=== PATIENT | female | born 1985 | race Caucasian/White ===

== ENCOUNTER 2017-02-18 13:50 | Emergency (ER) | payer OTHER ==
[2017-02-18 13:59] VITALS: TEMP 97.9; BMI 32.3
--- NOTE | 2017-02-18 14:10 | PDOC ---
History of Present Illness - General History Source: Patient Exam Limitations: No Limitations - History of Present Illness Initial Comments: CHIEF COMPLAINT: 31 y/o afebrile female, (1 molar 2012), approximately 11 week gravid female c/o vaginal bleeding today. HISTORY OF PRESENT ILLNESS: The patient states that she thinks she's about 11 weeks with her LMP sometime in November. She states this morning she noticed light pink vaginal bleeding with some lower abdominal and back cramping. She denies f/c, n/v/d, CP, SOB, hematuria, dysuria, passage of clots. [employer]PER[employer] is Dr. Holloway. Vital signs on arrival are within normal limits. REVIEW OF SYSTEMS: GENERAL/CONSTITUTIONAL: No fever/chills. No weakness. No weight change. HEAD, EYES, EARS, NOSE AND THROAT: No change in vision. No ear pain or discharge. No sore throat. CARDIOVASCULAR: No chest pain or shortness of breath. RESPIRATORY: No cough, wheezing, or hemoptysis. GASTROINTESTINAL: +abd pain. No nausea, vomiting, diarrhea. +pink vaginal bleeding. GENITOURINARY: No dysuria, frequency, or change in urination. MUSCULOSKELETAL: No joint or muscle swelling or pain. No neck pain. +low back pain. NEUROLOGIC: No headache, vertigo, loss of consciousness, or loss of sensation. PHYSICAL EXAM: GENERAL: The patient is awake, alert, and fully oriented, in no acute distress. She is well appearing and ambulatory. HEAD: Normal with no signs of trauma. ENT: Pupils equal, round and reactive to light, extraocular movements intact, sclera anicteric, conjunctiva clear. Neck supple. LUNGS: Clear to auscultation bilaterally. Normal excursion. No respiratory distress or use of accessory muscles. CV: RRR, S1/S2, no MRG. Cap refill < 2 sec. ABDOMEN: Soft, non-distended, TTP of lower abdomen. No rebound, guarding, rigidity. BACK: No CVA TTP b/l. EXTREMITIES: Normal range of motion, no edema. NEUROLOGICAL: Normal speech, normal gait. CN II-XII grossly intact. PSYCH: Normal mood, normal affect. SKIN: Warm, dry, normal turgor, no rashes or lesions noted. <Chelsy Kaiser - Last Filed: 02/18/17 17:18> <Radha Montero - Last Filed: 02/21/17 13:01> - General Chief Complaint: Vaginal Bleeding Stated Complaint: VAGINAL BLEEDING, 12 WKS Time Seen by Provider: 02/18/17 14:07 Past History - Past Medical History Anemia: No Asthma: No Cancer: No Cardiac Disorders: No CVA: No COPD: No CHF: No Dementia: No Diabetes: No GI Disorders: Yes (gall Stones) Disorders: No HTN: No Hypercholesterolemia: No Seizures: No Thyroid Disease: No Other medical history: DENIES. - Surgical History Abdominal Surgery: Yes Appendectomy: No Cardiac Surgery: No Cholecystectomy: Yes Lung Surgery: No Neurologic Surgery: No Orthopedic Surgery: No - Psycho/Social/Smoking Cessation Hx Anxiety: No Suicidal Ideation: No Smoking Status: No Smoking History: Never smoked Have you smoked in the past 12 months: No Number of Cigarettes Smoked Daily: 0 Cigars Per Day: 0 Hx Alcohol Use: No Drug/Substance Use Hx: No Substance Use Type: None Hx Substance Use Treatment: No <Chelsy Kaiser - Last Filed: 02/18/17 17:18> <Radha Montero - Last Filed: 02/21/17 13:01> - Past Medical History Allergies/Adverse Reactions: Allergies Allergy/AdvReac Type Severity Reaction Status Date / Time No Known Allergies Allergy Verified 02/19/17 13:06 Home Medications: Ambulatory Orders Vit/Iron Fumarate/FA [ Plus Tablet] 1 each PO DAILY #0 tablet 07/13/13 Doxycycline Monohydrate [Mondoxyne Nl] 100 mg PO BID #10 capsule 02/19/17 Methylergonovine Maleate [Methergine -] 0.2 mg PO TID #6 tablet 02/19/17 *Physical Exam - Vital Signs Last Vital Signs Temp Pulse Resp BP Pulse Ox 97.9 F 68 18 124/69 99 02/18/17 13:56 02/18/17 13:56 02/18/17 13:56 02/18/17 13:56 02/18/17 13:56 <Chelsy Kaiser - Last Filed: 02/18/17 17:18> - Vital Signs Last Vital Signs Temp Pulse Resp BP Pulse Ox 97.9 F 70 18 118/69 99 02/18/17 13:56 02/18/17 17:49 02/18/17 17:49 02/18/17 17:49 02/18/17 17:49 <Radha Montero - Last Filed: 02/21/17 13:01> ED Treatment Course - LABORATORY CBC & Chemistry Diagram: 02/18/17 14:44 02/18/17 15:20 <Chelsy Kaiser - Last Filed: 02/18/17 17:18> - LABORATORY CBC & Chemistry Diagram: 02/18/17 14:44 02/18/17 15:20 - ADDITIONAL ORDERS Additional order review: 02/18/17 14:44 Urine Culture - Final Urine - Urine Clean Catch Contaminated: Please Repeat 02/18/17 14:44 RBC 4.79 MCV 84.8 MCHC 34.0 RDW 13.5 D MPV 9.2 Neutrophils % 56.6 Lymphocytes % 35.5 Monocytes % 6.8 Eosinophils % 0.8 Basophils % 0.3 <Radha Montero - Last Filed: 02/21/17 13:01> Medical Decision Making - Medical Decision Making A/P: 31 y/o female with pink vaginal bleeding today - approximately 11 weeks . Plan is as follows: 1. labs 2. UA/culture 3. Transvaginal ultrasound Transvaginal Ultrasound IMPRESSION: Single IUP with gestational age of 6 weeks, 1 day. No heart activity, consistent with demise. Blood type - O+ Beta HCG 19,831 UA negative for UTI. Labs unremarkable. Explained all of the results to the patient. Instructed her to call Dr. Holloway tomorrow to schedule a follow up appointment and return to the ER with any worsening or concerning symptoms. Suggested if she cannot get an appointment with Dr. Holloway within the next few days she should return here on for a repeat HCG. The patient verbalizes understanding of all instructions, has no further questions and is awaiting discharge. <Chelsy Kaiser - Last Filed: 02/18/17 17:18> *DC/Admit/Observation/Transfer <Chelsy Kaiser - Last Filed: 02/18/17 17:18> - Attestations Physician Attestion: I reviewed the case with the mid-level practitioner and agree with the mid- level practitioner's assessment, diagnosis and disposition. <Radha Montero - Last Filed: 02/21/17 13:01> Diagnosis at time of Disposition: Threatened Vaginal bleeding in Qualifiers: Trimester: first trimester Qualified Code(s): O46.91 - Antepartum hemorrhage, unspecified, first trimester - Discharge Dispostion Disposition: HOME Condition at time of disposition: Good - Referrals Referrals: Seema Holloway MD [Staff Physician] - - Patient Instructions Printed Discharge Instructions: DI for Vaginal Bleeding During , DI for Threatened Additional Instructions: Discharge Instructions: -Your ultrasound showed a fetus of 6 weeks, 1 day. There is no heart beat at this time -Your beta HCG is 19,831. -Please call Dr. Holloway tomorrow and schedule follow up appointment for repeat beta HCG level -Return to the ER with any worsening or concerning symptoms. Instrucciones de claribel: - Lee ultrasonido mostr un feto de 6 semanas, 1 da. No hay latido del corazn en elyse momento - Lee beta HCG es 19.831. -Por favor, llame al Dr. Holloway maana y programe la sayra de seguimiento para repetir el nivel de beta HCG -Vuelva a la karime de emergencias con cualquier empeoramiento o sntomas relacionados. Print Language: BULGARIAN
[2017-02-18 15:27] LABS: BASOPHIL 0.3 % (0-2.0); EOSINOPHIL 0.8 % (0-4.5); MCH 28.8 pg (25.7-33.7); MEAN CELL VOLUME 84.8 fl (80-96); MEAN PLT VOLUME 9.2 fl (7.5-11.1); NEUTROPHILS 56.6 % (42.8-82.8); PLATELET COUNT 165 K/MM3 (134-434); RDW 13.5 % (11.6-15.6); WHITE BLOOD COUNT 6.2 K/mm3 (4.0-10.0)
[2017-02-18 15:38] LABS: URINE APPEARANCE CLEAR; URINE BILIRUBIN NEGATIVE (NEGATIVE); URINE BLOOD 3+ (NEGATIVE); URINE COLOR COLORLESS; URINE GLUCOSE (UA) NEGATIVE (NEGATIVE); URINE KETONE NEGATIVE (NEGATIVE); URINE LEUK ESTERASE TRACE (NEGATIVE); URINE NITRITE NEGATIVE (NEGATIVE); URINE PROTEIN NEGATIVE (NEGATIVE); URINE UROBILINOGEN NEGATIVE mg/dL (0.2-1.0)
[2017-02-18 15:55] LABS: ALBUMIN 3.7 g/dl (3.4-5.0); ANION GAP 8 (8-16); CALCIUM 8.8 mg/dL (8.5-10.1); CO2 24 mmol/L (21-32); CREATININE 0.4 mg/dL (0.55-1.02); GLUCOSE,RANDOM 94 mg/dL (74-106); SGOT/AST 24 U/L (15-37); SGPT/ALT 47 U/L (12-78); TOT PROT 7.5 g/dl (6.4-8.2)
[2017-02-18 15:56] LABS: ALK PHOS 87 U/L (45-117); BILIRUBIN,TOTAL 0.5 mg/dL (0.2-1.0)
[2017-02-18 16:56] LABS: URINE BACTERIA FEW /hpf (NONE SEEN); URINE RBC 3 /hpf (0-3); URINE WBC <1 /hpf (3-5)
[2017-02-18 17:50] VITALS: BP 118/69; PULSE 70
== END 2017-02-18 17:49 | disposition home or self-care (01) ==
LOC: JER 13:50
DX: O26.891 Other specified pregnancy related conditions, first trimester (principal); O02.1 Missed abortion; O08.9 Unspecified complication following an ectopic and molar pregnancy; Z3A.01 Less than 8 weeks gestation of pregnancy
CPT/HCPCS: 36415; 76817-TC; 80053; 81003; 81015; 84702; 85025; 86850; 86900; 86901; 87086; 99283-25

== ENCOUNTER 2017-02-19 12:58 | Emergency (ER) | payer OTHER ==
[2017-02-19 13:06] VITALS: BMI 32.3
--- NOTE | 2017-02-19 13:42 | PDOC ---
History of Present Illness - General Chief Complaint: Vaginal Bleeding Stated Complaint: BLEEDING (9 WKS ) Time Seen by Provider: 02/19/17 13:41 History Source: Patient - History of Present Illness Initial Comments: CHIEF COMPLAINT: 31 y/o afebrile female, (1 molar 2012), who was seen here yesterday for vaginal bleeding while here because the bleeding has continued. HISTORY OF PRESENT ILLNESS: The patient states that today her vaginal bleeding became heavier with passage of clots. She has lower abdominal and back cramping and feels slightly nauseous. She denies f/c, v/d, CP, SOB, hematuria, dysuria. It was explained to her yesterday upon discharge by me that the bleeding may continue or worsen. [employer] is Dr. Holloway. Vital signs on arrival are within normal limits. REVIEW OF SYSTEMS: GENERAL/CONSTITUTIONAL: No fever/chills. No weakness. No weight change. HEAD, EYES, EARS, NOSE AND THROAT: No change in vision. No ear pain or discharge. No sore throat. CARDIOVASCULAR: No chest pain or shortness of breath. RESPIRATORY: No cough, wheezing, or hemoptysis. GASTROINTESTINAL: +abd pain. No nausea, vomiting, diarrhea. +red vaginal bleeding with passage of clots. GENITOURINARY: No dysuria, frequency, or change in urination. MUSCULOSKELETAL: No joint or muscle swelling or pain. No neck pain. +low back pain. NEUROLOGIC: No headache, vertigo, loss of consciousness, or loss of sensation. PHYSICAL EXAM: GENERAL: The patient is awake, alert, and fully oriented, in no acute distress. She is well appearing and ambulatory. HEAD: Normal with no signs of trauma. ENT: Pupils equal, round and reactive to light, extraocular movements intact, sclera anicteric, conjunctiva clear. Neck supple. LUNGS: Clear to auscultation bilaterally. Normal excursion. No respiratory distress or use of accessory muscles. CV: RRR, S1/S2, no MRG. Cap refill < 2 sec. ABDOMEN: Soft, non-distended, TTP of lower abdomen. No rebound, guarding, rigidity. BACK: No CVA TTP b/l. VAGINAL: Speculum exam reveals moderate red blood in the vault without visualization of any clots. The os is open to finger tip. Digital exam reveals CMT without adnexal tenderness b/l. EXTREMITIES: Normal range of motion, no edema. NEUROLOGICAL: Normal speech, normal gait. CN II-XII grossly intact. PSYCH: Normal mood, normal affect. SKIN: Warm, dry, normal turgor, no rashes or lesions noted. Past History - Past Medical History Allergies/Adverse Reactions: Allergies Allergy/AdvReac Type Severity Reaction Status Date / Time No Known Allergies Allergy Verified 02/19/17 13:06 Home Medications: Ambulatory Orders Vit/Iron Fumarate/FA [ Plus Tablet] 1 each PO DAILY #0 tablet 07/13/13 Anemia: No Asthma: No Cancer: No Cardiac Disorders: No CVA: No COPD: No CHF: No Dementia: No Diabetes: No GI Disorders: Yes (gall Stones) Disorders: No HTN: No Hypercholesterolemia: No Seizures: No Thyroid Disease: No - Surgical History Abdominal Surgery: Yes Appendectomy: No Cardiac Surgery: No Cholecystectomy: Yes Lung Surgery: No Neurologic Surgery: No Orthopedic Surgery: No - Reproductive History (#): 4 Para: 2 - Psycho/Social/Smoking Cessation Hx Anxiety: No Suicidal Ideation: No Smoking Status: No Smoking History: Never smoked Have you smoked in the past 12 months: No Number of Cigarettes Smoked Daily: 0 Cigars Per Day: 0 Hx Alcohol Use: No Drug/Substance Use Hx: No Substance Use Type: None Hx Substance Use Treatment: No *Physical Exam - Vital Signs Last Vital Signs Temp Pulse Resp BP Pulse Ox 97.8 F 73 20 128/70 100 02/19/17 13:03 02/19/17 13:03 02/19/17 13:03 02/19/17 13:03 02/19/17 13:03 ED Treatment Course - LABORATORY CBC & Chemistry Diagram: 02/19/17 14:06 02/19/17 15:30 Medical Decision Making - Medical Decision Making A/P: 31 y/o afebrile female seen here yesterday for vaginal bleeding in has returned for continued and heavier bleeding with passage of clots. The patient had an ultrasound yesterday that suggested demise. Will repeat CBC and beta. WBC count has doubled since yesterday and she now has a left shift. She is afebrile with normal vital signs. Will do further lab work up and send for repeat Ultrasound Transvaginal Ultrasound IMPRESSION: No gestational sac seen. There is a trace of fluid within the cervical canal and the endometrial cavity in the lower uterine segment. No gross retained products of conception are identified. Correlation with serial quantitative serum beta HCG and follow up ultrasound is needed. Spoke with the patient and gave her all of the results. Question as to whether we keep her for a D&C given her os is slightly open or d/c to home with abx. Informed the patient we are trying to get in touch with her [employer] to discuss the matter and asked her to be patient. [facility] has been attempting to reach Dr. Luna since 6:20pm without call back yet. Dr. Sarah is aware of the patient and will discuss the matter with Dr. Luna when she calls. *DC/Admit/Observation/Transfer Diagnosis at time of Disposition: Miscarriage Vaginal bleeding in Qualifiers: Trimester: first trimester Qualified Code(s): O46.91 - Antepartum hemorrhage, unspecified, first trimester - Discharge Dispostion Condition at time of disposition: Stable - Referrals Referrals: Seema Holloway MD [Staff Physician] -
[2017-02-19 15:12] LABS: BASOPHIL 0.2 % (0-2.0); EOSINOPHIL 0.1 % (0-4.5); MCH 28.5 pg (25.7-33.7); MCHC 34.1 g/dl (32.0-36.0); MEAN CELL VOLUME 83.6 fl (80-96); MEAN PLT VOLUME 8.8 fl (7.5-11.1); NEUTROPHILS 87.2 % (42.8-82.8); PLATELET COUNT 164 K/MM3 (134-434); RDW 13.8 % (11.6-15.6); WHITE BLOOD COUNT 12.6 K/mm3 (4.0-10.0)
[2017-02-19] MEDS ORDERED: SODIUM CHLORIDE 1,000 ML IV STA (15:24)
[2017-02-19 15:53] LABS: URINE APPEARANCE CLEAR; URINE BILIRUBIN NEGATIVE (NEGATIVE); URINE BLOOD 3+ (NEGATIVE); URINE COLOR STRAW; URINE GLUCOSE (UA) NEGATIVE (NEGATIVE); URINE KETONE NEGATIVE (NEGATIVE); URINE LEUK ESTERASE TRACE (NEGATIVE); URINE NITRITE NEGATIVE (NEGATIVE); URINE PROTEIN NEGATIVE (NEGATIVE); URINE UROBILINOGEN NEGATIVE mg/dL (0.2-1.0)
[2017-02-19 16:12] LABS: ALBUMIN 3.9 g/dl (3.4-5.0); ALK PHOS 83 U/L (45-117); ANION GAP 11 (8-16); BILIRUBIN,TOTAL 0.7 mg/dL (0.2-1.0); CO2 22 mmol/L (21-32); CREATININE 0.4 mg/dL (0.55-1.02); GLUCOSE,RANDOM 95 mg/dL (74-106); SGOT/AST 30 U/L (15-37); SGPT/ALT 50 U/L (12-78)
--- NOTE | 2017-02-19 16:58 | PDOC ---
*Physical Exam - Vital Signs Last Vital Signs Temp Pulse Resp BP Pulse Ox 97.8 F 73 20 128/70 100 02/19/17 13:03 02/19/17 13:03 02/19/17 13:03 02/19/17 13:03 02/19/17 13:03 ED Treatment Course - LABORATORY CBC & Chemistry Diagram: 02/19/17 14:06 02/19/17 15:30 - ADDITIONAL ORDERS Additional order review: Laboratory Results 02/19/17 02/19/17 02/19/17 15:30 15:30 14:06 Sodium 137 Potassium 3.8 Chloride 104 Carbon Dioxide 22 Anion Gap 11 BUN 8 Creatinine 0.4 L Creat Clearance w eGFR > 60 Random Glucose 95 Lactic Acid 0.9 Calcium 9.0 Total Bilirubin 0.7 D AST 30 D ALT 50 Alkaline Phosphatase 83 Total Protein 8.0 Albumin 3.9 Beta HCG, Quant 39638.7 02/19/17 14:06 RBC 4.95 MCV 83.6 MCHC 34.1 RDW 13.8 MPV 8.8 Neutrophils % 87.2 H D Lymphocytes % 9.4 D Monocytes % 3.1 L Eosinophils % 0.1 D Basophils % 0.2 - Medications Given in the ED: ED Medications Discontinued Medications Generic Name Dose Route Start Last Admin Trade Name Freq PRN Reason Stop Dose Admin Sodium Chloride 1,000 mls @ 1,000 mls/hr 02/19/17 15:24 02/19/17 15:31 Normal Saline - IV 02/19/17 16:23 1,000 mls/hr ASDIR STA Administration Medical Decision Making - Medical Decision Making 02/19/17 16:57 Seen with PA, agree with her assessment and plan A/P:31yo F presents with likely incomplete . Labs thus far with leukocytosis, however pt denies cough, SOB, CP, abd pain, dysuria, suprapubic pain, rashes. Unlikely leukocytosis due to infection, more likely due to stress response from incomplete . Will check UA and treat if positive in case viable. Type and Screen Rh+ from yesterday -cbc, bmp, lfts -UA -TVUS -likely DC to f/u with her OB within 2 days and the following bleeding precautions: Bleeding may be spotty, dark brown, and include clots. Often there is no bleeding for the first few days immediately following the , then hormonal changes may cause bleeding as heavy as a period around the third or fifth day and increased cramping. If heavy bleeding (soaking a full-sized maxi- pad in one hour) and continues for more than three hours, call your OB doctor. If you do not hear back within a few hours, come to the emergency department 02/19/17 17:01 *DC/Admit/Observation/Transfer Diagnosis at time of Disposition: Vaginal bleeding in Qualifiers: Trimester: first trimester Qualified Code(s): O46.91 - Antepartum hemorrhage, unspecified, first trimester
[2017-02-19 17:44] LABS: URINE BACTERIA RARE /hpf (NONE SEEN); URINE RBC <1 /hpf (0-3); URINE WBC 1 /hpf (3-5)
[2017-02-19 20:06] VITALS: BP 111/67; PULSE 59; TEMP 98.5
--- NOTE | 2017-02-19 20:19 | PDOC ---
*Physical Exam - Vital Signs Last Vital Signs Temp Pulse Resp BP Pulse Ox 98.5 F 59 L 20 111/67 99 02/19/17 20:05 02/19/17 20:05 02/19/17 13:03 02/19/17 20:05 02/19/17 20:05 - Physical Exam Comments: 02/19/17 20:14 Patient was endorsed to me by Dr. Barragan. Patient is a 31-year-old female, 4 para 2, who presented for reevaluation of abdominal pain and vaginal bleeding. Patient been seen one day prior and diagnosed with missed AB. In the ER, patient is awake and alert, afebrile and hemodynamically stable. On pelvic exam, patient was noted to have CMP and mild uterine tenderness. Os was noted to be fingertip. CBC was noted for increased WBCs of 12.6 which appears to be increased from 6.2 with predominance of neutrophils. Urinalysis is within normal limit. Patient is Rh+. Beta hCG was also noted to have decreased from 19, 000-to 12,000. Transvaginal ultrasound shows a fluid collection in the distal uterine segment with no evidence of retained products of conception, endometrial stripe is noted to be 11 mm. Case discussed with Dr. jefferson of OB/ [employer]. Will discharge patient with doxycycline, Methergine and [employer] follow-up. ED Treatment Course - LABORATORY CBC & Chemistry Diagram: 02/19/17 14:06 02/19/17 15:30 - ADDITIONAL ORDERS Additional order review: Laboratory Results 02/19/17 02/19/17 02/19/17 15:30 15:30 15:30 Sodium 137 Potassium 3.8 Chloride 104 Carbon Dioxide 22 Anion Gap 11 BUN 8 Creatinine 0.4 L Creat Clearance w eGFR > 60 Random Glucose 95 Lactic Acid 0.9 Calcium 9.0 Total Bilirubin 0.7 D AST 30 D ALT 50 Alkaline Phosphatase 83 Total Protein 8.0 Albumin 3.9 Beta HCG, Quant Urine Color Straw Urine Appearance Clear Urine pH 7.0 Urine Protein Negative Urine Glucose (UA) Negative Urine Ketones Negative Urine Blood 3+ H Urine Nitrite Negative Urine Bilirubin Negative Urine Urobilinogen Negative Ur Leukocyte Esterase Trace Urine RBC <1 Urine WBC 1 Ur Epithelial Cells Rare Urine Bacteria Rare 02/19/17 14:06 Sodium Potassium Chloride Carbon Dioxide Anion Gap BUN Creatinine Creat Clearance w eGFR Random Glucose Lactic Acid Calcium Total Bilirubin AST ALT Alkaline Phosphatase Total Protein Albumin Beta HCG, Quant 24485.7 Urine Color Urine Appearance Urine pH Urine Protein Urine Glucose (UA) Urine Ketones Urine Blood Urine Nitrite Urine Bilirubin Urine Urobilinogen Ur Leukocyte Esterase Urine RBC Urine WBC Ur Epithelial Cells Urine Bacteria 02/19/17 14:06 RBC 4.95 MCV 83.6 MCHC 34.1 RDW 13.8 MPV 8.8 Neutrophils % 87.2 H D Lymphocytes % 9.4 D Monocytes % 3.1 L Eosinophils % 0.1 D Basophils % 0.2 - Medications Given in the ED: ED Medications Discontinued Medications Generic Name Dose Route Start Last Admin Trade Name Freq PRN Reason Stop Dose Admin Sodium Chloride 1,000 mls @ 1,000 mls/hr 02/19/17 15:24 02/19/17 15:31 Normal Saline - IV 02/19/17 16:23 1,000 mls/hr ASDIR STA Administration *DC/Admit/Observation/Transfer Diagnosis at time of Disposition: Miscarriage Vaginal bleeding in Qualifiers: Trimester: first trimester Qualified Code(s): O46.91 - Antepartum hemorrhage, unspecified, first trimester - Discharge Dispostion Condition at time of disposition: Stable - Referrals Referrals: Seema Holloway MD [Staff Physician] - - Patient Instructions Printed Discharge Instructions: DI for Miscarriage Print Language: ESTONIAN - Post Discharge Activity
[2017-02-19] MEDS ORDERED: DOXYCYCLINE HYCLATE 100 MG CAPSULE PO ONE ×2 (20:27→20:34)
[2017-02-19] MEDS ORDERED: ONDANSETRON *ODT* 4 MG TABLET SL ONE (20:27)
[2017-02-19] MEDS ORDERED: ONDANSETRON 8 MG TABLET (FP) PO ONE (20:35)
== END 2017-02-19 21:06 | disposition home or self-care (01) ==
LOC: JER 12:58
PROC: 3E0337Z Introduction of Electrolytic and Water Balance Substance into Peripheral Vein, Percutaneous Approach (ICD-10-PCS; principal; 2017-02-19)
DX: O03.9 Complete or unspecified spontaneous abortion without complication (principal); O46.91 Antepartum hemorrhage, unspecified, first trimester; Z3A.09 9 weeks gestation of pregnancy
CPT/HCPCS: 36415; 76817-TC; 80053; 81003; 81015; 83605; 84702; 85025; 87040; 99282-25

== ENCOUNTER 2018-03-16 16:33 | Emergency (ER) | payer OTHER ==
--- NOTE | 2018-03-16 16:42 | PDOC ---
Rapid Medical Evaluation Time Seen by Provider: 03/16/18 16:41 Medical Evaluation: Allergies Allergy/AdvReac Type Severity Reaction Status Date / Time No Known Allergies Allergy Verified 03/16/18 16:41 03/16/18 16:41 Healthy 32-year-old a2 LMP January 25 with vaginal bleeding and back pain for one day. Alert, oriented, no distress. RRR, S1/S2. Lungs CTAB. Plan: -Labs including CBC, BMP, Bhcg, T&S, UA/culture -TV u/s -To Main ED for further evaluation
[2018-03-16 16:44] VITALS: BP 115/75; PULSE 71; TEMP 98.3; BMI 30.9
[2018-03-16 17:29] LABS: BASO % 0.8 % (0-2.0); EOS % 0.8 % (0-4.5); LYMPH % 27.6 % (8-40); MCH 29.8 pg (25.7-33.7); MEAN CELL VOLUME 84.9 fl (80-96); MEAN PLT VOLUME 8.5 fl (7.5-11.1); MONO % 8.3 % (3.8-10.2); NEUT % 62.5 % (42.8-82.8); PLATELET COUNT 160 K/MM3 (134-434); RBC 4.71 M/mm3 (3.60-5.2)
[2018-03-16 17:52] LABS: ANION GAP 10 MMOL/L (8-16); BLOOD UREA NITROGEN 8 mg/dL (7-18); CALCIUM 8.2 mg/dL (8.5-10.1); CHLORIDE 107 mmol/L (98-107); CO2 23 mmol/L (21-32); CREATININE 0.6 mg/dL (0.55-1.02); GLUCOSE,RANDOM 98 mg/dL (74-106); POTASSIUM 3.8 mmol/L (3.5-5.1); SODIUM 140 mmol/L (136-145)
[2018-03-16 18:10] LABS: URINE APPEARANCE CLEAR; URINE BILIRUBIN NEGATIVE (<2.0 mg/dL); URINE COLOR STRAW; URINE GLUCOSE (UA) NEGATIVE (NEGATIVE); URINE KETONE NEGATIVE (NEGATIVE); URINE LEUK ESTERASE NEGATIVE (NEGATIVE); URINE NITRITE NEGATIVE (NEGATIVE); URINE PROTEIN NEGATIVE (NEGATIVE); URINE UROBILINOGEN NEGATIVE mg/dL (0.2-1.0)
[2018-03-16 18:15] LABS: EPI CELLS RARE /HPF (FEW); URINE MUCUS RARE
--- NOTE | 2018-03-16 19:49 | PDOC ---
History of Present Illness - General Chief Complaint: Vaginal Bleeding Stated Complaint: VAGINAL BLEEDING/4 WKS Time Seen by Provider: 03/16/18 16:41 History Source: Patient Exam Limitations: No Limitations - History of Present Illness Initial Comments: 03/16/18 19:50 Patient is a 32F A2 at 7wks by lmp here today complaining of vaginal bleeding. Patient states that she had an episode of lower abdominal pain then passed a "large" amount of blood. Denies fevers, chills, nausea, vomiting. Denies abdominal pain at this moment. Endorses vaginal itching and dysuria. Denies vaginal pain and discharge. Patient has not had confirmatory ultrasound. Patient is concerned that she had an . Past History - Past Medical History Allergies/Adverse Reactions: Allergies Allergy/AdvReac Type Severity Reaction Status Date / Time No Known Allergies Allergy Verified 03/16/18 16:41 Home Medications: Ambulatory Orders Vit/Iron Fumarate/FA [ Plus Tablet] 1 each PO DAILY #0 tablet 07/13/13 Doxycycline Monohydrate [Mondoxyne Nl] 100 mg PO BID #10 capsule 02/19/17 Methylergonovine Maleate [Methergine -] 0.2 mg PO TID #6 tablet 02/19/17 Anemia: No Asthma: No Cancer: No Cardiac Disorders: No CVA: No COPD: No CHF: No DVT: No Dementia: No Diabetes: No GI Disorders: Yes (gall Stones) Disorders: No HTN: No Hypercholesterolemia: No Seizures: No Thyroid Disease: No - Surgical History Abdominal Surgery: Yes Appendectomy: No Cardiac Surgery: No Cholecystectomy: Yes Lung Surgery: No Neurologic Surgery: No Orthopedic Surgery: No - Reproductive History (#): 4 Para: 2 Cervical CA: No Dysfunctional Uterine Bleeding: No Ectopic : No Endometrial CA: No Polycystic Ovaries: No Therapeutic (s) & number: No (molar) Tubal Ligation: No Spontaneous : 1 - Suicide/Smoking/Psychosocial Hx Smoking Status: No Smoking History: Never smoked Have you smoked in the past 12 months: No Number of Cigarettes Smoked Daily: 0 Cigars Per Day: 0 Information on smoking cessation initiated: No Hx Alcohol Use: No Drug/Substance Use Hx: No Substance Use Type: None Hx Substance Use Treatment: No Review of Systems - Review of Systems Comments:: 03/16/18 19:51 GENERAL/CONSTITUTIONAL: No fever or chills. No weakness. HEAD, EYES, EARS, NOSE AND THROAT: No change in vision. No ear pain or discharge. No sore throat. CARDIOVASCULAR: No chest pain or shortness of breath RESPIRATORY: No cough, wheezing, or hemoptysis. GASTROINTESTINAL: No nausea, vomiting, diarrhea or constipation. GENITOURINARY: No dysuria, frequency, or change in urination. MUSCULOSKELETAL: No joint or muscle swelling or pain. No neck or back pain. SKIN: No rash NEUROLOGIC: No headache, vertigo, loss of consciousness, or change in strength/ sensation. ENDOCRINE: No increased thirst. No abnormal weight change HEMATOLOGIC/LYMPHATIC: No anemia, easy bleeding, or history of blood clots. ALLERGIC/IMMUNOLOGIC: No hives or skin allergy. *Physical Exam - Vital Signs Last Vital Signs Temp Pulse Resp BP Pulse Ox 98.3 F 71 18 115/75 100 03/16/18 16:41 03/16/18 16:41 03/16/18 16:41 03/16/18 16:41 03/16/18 16:41 - Physical Exam Comments: 03/16/18 19:52 GENERAL: Awake, alert, and fully oriented, in no acute distress : Normal external genitalia, no CMT, no blood in vaginal vault, closed os HEAD: No signs of trauma, normocephalic, atraumatic EYES: PERRLA, EOMI, sclera anicteric, conjunctiva clear ENT: Auricles normal inspection, hearing grossly normal, nares patent, oropharynx clear without exudates. Moist mucosa NECK: Normal ROM, supple, no lymphadenopathy, JVD, or masses LUNGS: No distress, speaks full sentences, clear to auscultation bilaterally HEART: Regular rate and rhythm, normal S1 and S2, no murmurs, rubs or gallops, peripheral pulses normal and equal bilaterally. ABDOMEN: Soft, nontender, normoactive bowel sounds. No guarding, no rebound. No masses EXTREMITIES: Normal inspection, Normal range of motion, no edema. No clubbing or cyanosis. NEUROLOGICAL: Cranial nerves II through XII grossly intact. Normal speech, normal gait, no focal sensorimotor deficits SKIN: Warm, Dry, normal turgor, no rashes or lesions noted. ED Treatment Course - LABORATORY CBC & Chemistry Diagram: 03/16/18 17:20 03/16/18 17:20 - ADDITIONAL ORDERS Additional order review: Laboratory Results 03/16/18 03/16/18 17:41 17:20 Sodium 140 Potassium 3.8 Chloride 107 Carbon Dioxide 23 Anion Gap 10 BUN 8 Creatinine 0.6 Creat Clearance w eGFR > 60 Random Glucose 98 Calcium 8.2 L Beta HCG, Quant 70397.0 Urine Color Straw Urine Appearance Clear Urine pH 6.0 Ur Specific Bellamy 1.008 Urine Protein Negative Urine Glucose (UA) Negative Urine Ketones Negative Urine Blood 2+ H Urine Nitrite Negative Urine Bilirubin Negative Urine Urobilinogen Negative Ur Leukocyte Esterase Negative Urine WBC (Auto) <1 Urine RBC (Auto) 2 Ur Epithelial Cells Rare Urine Mucus Rare 03/16/18 17:20 RBC 4.71 MCV 84.9 MCHC 35.0 RDW 14.0 MPV 8.5 Neutrophils % 62.5 D Lymphocytes % 27.6 D Monocytes % 8.3 D Eosinophils % 0.8 D Basophils % 0.8 D - RADIOLOGY Radiology Studies Ordered: Category Date Time Status TRANSVAGINAL US PREG [US] Stat Ultrasound 03/16/18 19:38 Ordered Medical Decision Making - Medical Decision Making 03/16/18 19:52 Patient is 32F A2 here today with threatened AB. Vitals normal and stable. DDx includes, but is not limited to: threatened ab, ab, ectopic. Evaluated with blood work by RME. CBC, CMP reassuring. Beta 13k. Blood type O+, no rhogam needed. Pending TVUS. 03/16/18 21:20 CBC normal. CMP reassuring. Blood retype O+. UA neg. TVUS shows viable IUP at 6w0d. Explained the concept of threatened ab to patient using retinal surgeon, given return precautions, prescribed monistat for yeast infection. Patient expressed understanding. *DC/Admit/Observation/Transfer Diagnosis at time of Disposition: Yeast infection, Normal IUP (intrauterine ) on ultrasound - Discharge Dispostion Disposition: HOME Condition at time of disposition: Good Decision to Admit order: No - Referrals - Patient Instructions Printed Discharge Instructions: DI for Vaginal Yeast Infection, DI for Threatened Additional Instructions: Por favor pepito un seguimiento con [facility]. Por favor, regrese si tiene algn sntoma nuevo, que empeora o preocupa. Print Language: CENTRAL AFRICAN - Post Discharge Activity
--- NOTE | 2018-03-16 20:02 | PDOC ---
Attending Attestation - HPI HPI: 03/16/18 22:14 Patient is a 32 year old female,A2 who is 7 weeks , with a significant past medical history of Gallstones, who presents to the ED with complaints of vaginal bleeding that began earlier today. Patient reports experiencing sudden intense lower abdominal pain followed by vaginal bleeding that she states appeared to be a large amount of blood prompting her to come into the ED for further evaluation. She reports experiencing associated symptoms of vaginal itching and dysuria. Patient reports she has not has a ultrasound for this yet. Denies chest pain, Sob. Denies nausea,vomiting. Denies fevers,chills. Denies contact with sick individuals, out of state traveling. Denies any other symptoms. Allergies: None Social history: No smoking. No alcohol. No illicit drugs. Surgical history: None PMD: None <Florian Delacruz - Last Filed: 03/16/18 22:14> - Resident Resident Name: Dean Dewitt - ED Attending Attestation I have performed the following: I have examined & evaluated the patient, The case was reviewed & discussed with the resident, I agree w/resident's findings & plan, Exceptions are as noted - HPI HPI: 03/16/18 20:02 wnwd 32 yo female states she is 7 weeks and has vaginal bleeding and vaginal itching - Physicial Exam PE: 03/16/18 20:02 wnwd 32 yo female in no acute distress head ncat neck supple lungs sta b/l cvs [id number] abd no rebound,no guarding pelvic done by DrHuls ext no pitting edema neuro axox3,no gross focal neuro deficits - Medical Decision Making 03/17/18 23:16 US shows single live IUP of 6 weeks with heart gcnid=[id number] <Savanna Moran - Last Filed: 03/17/18 23:17>
== END 2018-03-16 21:35 | disposition home or self-care (01) ==
LOC: JER 16:33
DX: O26.891 Other specified pregnancy related conditions, first trimester (principal); O20.0 Threatened abortion; O98.811 Other maternal infectious and parasitic diseases complicating pregnancy, first trimester; B37.3 Candidiasis of vulva and vagina; Z3A.01 Less than 8 weeks gestation of pregnancy
CPT/HCPCS: 36415; 76817-TC; 80048; 81003; 81015; 84702; 85025; 86850; 86900; 86901; 87086; 99282-25

== ENCOUNTER 2018-05-11 05:01 | Day surgery (SDC) | payer OTHER ==
[2018-05-08 11:59] VITALS: BMI 31.8
--- NOTE | 2018-05-11 11:28 | HP ---
Admitting History and Physical - Admission Chief Complaint: Missed AB History of Present Illness: 32yo @ 8.6wks with missed AB. Diagnosed with MFM office when patient went for evaluation. Size not c/w LMP. ~ 14-15wks per LMP, but 8.6wks by sono. NO cardiac motion noted. No VB/cramping. Unplanned but desired . Failed expectant management, declined cytotec. 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 No: AFIB, Aneurysm, Aortic Insufficiency, Aortic Stenosis, CAD, CHF, Deep Vein Thrombosis, HTN, MA, Mitral Insufficiency, Mitral Stenosis, Murmur, Pulmonary Hypertension, Other Pulmonary: No: Asthma, Bronchitis, Cancer, COPD, O2 Dependent, Pneumonia, Previously Intubated, Pulmonary Embolus, Pulmonary Fibrosis, Sleep Apnea, Other Gastrointestinal: No: Ascites, Cancer, Constipation, Crohn's Disease, Diverticulitis, Diverticulosis, Esophageal Varices, Gastritis, GERD, GI Bleed, Hemorrhoids, Hiatal Hernia, Inflamatory Bowel Disease, Irritable Bowel Disease, Pancreatitis, Peptic Ulcer Disease, Ulcerative Colitis, Other Hepatobiliary: Yes: Other (h/o fatty liver disease). No: Cirrhosis, Cholelithiasis, Cholecystitis, Choledocholithiasis, Hepatitis A, Hepatitis B, Hepatitis C Renal/: No: Renal Failure, Renal Inusuff, BPH, Cancer, Hematuria, Hemodialysis , Neurogenic Bladder, Renal Calculi, UTI, Other ...LMP: 01/25/18 - Past Surgical History Past Surgical History: Yes: Cholecystectomy, Additional Past Surgical History: Suction D&C - Smoking History Smoking history: Never smoked Have you smoked in the past 12 months: No Aproximately how many cigarettes per day: 0 - Alcohol/Substance Use Hx Alcohol Use: No History of Substance Use: reports: None Home Medications - Allergies Allergies/Adverse Reactions: Allergies Allergy/AdvReac Type Severity Reaction Status Date / Time No Known Allergies Allergy Verified 05/11/18 10:49 - Home Medications Home Medications: Ambulatory Orders Vit/Iron Fumarate/FA [ Plus Tablet] 1 each PO DAILY #0 tablet 07/13/13 Review of Systems - Review of Systems Constitutional: denies: No Symptoms, Chills, Diaphoresis, Fever, Lethargy, Loss of Appetite, Malaise, Night Sweats, Unintentional Wgt. Loss, Weakness, Other Eyes: denies: No Symptoms, Blind Spots, Blurred Vision, Double Vision, Eye Pain , Floaters, Photophobia, Recent Change in Vision, Other HENT: denies: No Symptoms, Difficult Swallowing, Ear Discharge, Ear Pain, Epistaxis, Gingival Bleeding, Hearing Loss, Mouth Swelling, Nasal Congestion, Ocular Prosthesis, Throat Pain, Toothache, Ringing in Ears, Other Neck: denies: No Symptoms, Decreased ROM, Lumps, Pain on Movement, Stiffness, Swollen Glands, Tenderness, Other Cardiovascular: denies: No Symptoms, Chest Pain, Edema, Palpitations, Shortness of Breath, Other Gastrointestinal: denies: No Symptoms, Abdominal Pain, Bloating, Constipation, Diarrhea, Dysphagia, Indigestion, Melena, Nausea, Rectal Bleeding, Vomiting, Vomiting Blood, Other Genitourinary: denies: No Symptoms, Burning, Discharge, Dysuria, Flank Pain, Frequency, Hematuria, Incontinence, Lesions, Menses, Pain, Testicular Mass, Testicular Pain, Testicular Swelling, Urgency, Vaginal Bleeding, Other Musculoskeletal: denies: No Symptoms, Back Pain, Crepitus, Decreased ROM, Extremity Pain, Joint Pain, Joint Swelling, Muscle Pain, Muscle Cramps, Muscle Weakness, Other Integumentary: denies: No Symptoms, Blister, Bruising, Change in Color, Eczema, Erythema, Incision, Lesions, Lump, Pallor, Pruritis, Rash, Wound, Other Endocrine: denies: No Symptoms, Excessive Sweating, Flushing, Increased Hunger, Increased Thirst, Intolerance to Cold, Intolerance to Heat, Unexplained Weight Gain, Unexplained Weight Loss, Other Physical Examination Vital Signs: Vital Signs Temperature 97.6 F 05/11/18 10:47 Pulse Rate 59 L 05/11/18 10:47 Respiratory Rate 20 05/11/18 10:47 Blood Pressure 114/66 05/11/18 10:47 O2 Sat by Pulse Oximetry (%) 100 05/11/18 10:46 Constitutional: Yes: Well Nourished Cardiovascular: Yes: WNL Respiratory: Yes: WNL Gastrointestinal: Yes: WNL Edema: No Assessment/Plan 32yo @ 8.6wks with Missed AB T&S, CBC NPO, IVFs Suction D&C, risk of procedure reviewed including bleeding, infection and injury including uterine perforation including laparoscopy. All questions answered. Consents signed Proceed to OR Laurie Luna MD
[2018-05-11] MEDS ORDERED: MIDAZOLAM HCL 2 MG/2 ML SINGLE DOSE VIAL ONE (12:19)
[2018-05-11] MEDS ORDERED: LIDOCAINE HCL/PF 2% SDV 5ML VIAL ONE (12:19)
[2018-05-11] MEDS ORDERED: KETOROLAC TROMETHAMINE 30 MG/1 ML VIAL ONE (12:19)
[2018-05-11] MEDS ORDERED: PROPOFOL 20 ML ONE ×2 (12:19→12:50)
[2018-05-11] MEDS ORDERED: ONDANSETRON 4 MG/2 ML VIAL IVPUSH PRN (12:24)
[2018-05-11] MEDS ORDERED: oxyCODONE HCL 5 MG TABLET PO PRN (12:24)
[2018-05-11] MEDS ORDERED: ACETAMINOPHEN 1000 MG/100 ML VIAL (NON FORMULARY) IVPB PRN (12:25)
[2018-05-11] MEDS ORDERED: LACTATED RINGERS SOLUTION 1,000 ML IV SCH (12:30)
[2018-05-11] MEDS ORDERED: DEXAMETHASONE SOD PHOSPHATE 4 MG/1 ML VIAL ONE (12:43)
[2018-05-11] MEDS ORDERED: SILVER NITRATE 75% APPLIC STCK 1 PKT EACH TP ONE (12:58)
[2018-05-11 13:54] VITALS: TEMP 98.8
[2018-05-11 15:43] VITALS: BP 113/75; PULSE 60
--- NOTE | 2018-05-12 06:44 | OP ---
DATE OF OPERATION: 05/11/2018 PREOPERATIVE DIAGNOSIS: Missed . POSTOPERATIVE DIAGNOSIS: Missed . PROCEDURE: Suction dilatation and curettage. ANESTHESIA: IV sedation. SURGEON: Tonia Wynn MD INTRAVENOUS FLUIDS: 600 mL. ESTIMATED BLOOD LOSS: 50 mL. URINE OUTPUT: Not measured. FINDINGS: A 0-lmmh-gxqem uterus, products of conception, normal cervix, normal vagina. COMPLICATIONS: None. CONDITION: Stable to recovery unit. NATURE OF PROCEDURE: The patient was taken to the operating room where IV sedation was administered. She was placed in lithotomy position after a time-out. Speculum was inserted into the vagina after iodine prep. Cervix was visualized. The anterior lip of the cervix was grasped with a single-tooth tenaculum. The cervix was then dilated to accommodate the [place] dilators up to 27. A 10-mm suction tip was introduced into the fundus. Then, under suction, products of conception were removed with 3 passes until bubbles were seen. The suction tip was removed. Gentle curettage was done, which obtained a good cry in all 4 quadrants of the uterus. Curettage was then removed. All specimens were sent for pathology. The single-tooth tenaculum was removed off the anterior lip of the cervix, and one of the bite sites was hemostatic after some pressure. Silver nitrate was still applied just to further ensue hemostasis. No further was noted. No bleeding was seen from the cervical os. The speculum was then removed. Lap counts were correct. The patient did not receive any antibiotics. She was taken to the recovery room in stable condition. TONIA WYNN MD [id number]
--- NOTE | 2018-05-14 10:00 | PATH ---
Surgical Pathology Report Patient Name: AMANDA GEORGES Med. Rec. #: [id number] /Age/Gender: 1985 (Age: 32) / F Account: [id number] Location: [facility] Taken: 05/11/2018 Received: 05/11/2018 Reported: 05/14/2018 Physicians: Laurie Luna Specimen(s) Received PRODUCTS OF CONCEPTION Clinical History Missed , two prior SABs Final Diagnosis PRODUCTS OF CONCEPTION, DILATION AND CURETTAGE: VARIABLE VILLOUS ENLARGEMENT WITH FOCAL MARKED HYDROPIC CHANGES, CISTERN FORMATION AND TROPHOBLASTIC HYPERPLASIA CONSISTENT WITH PARTIAL HYDATIDIFORM MOLE. CHROMOSOMAL STUDIES ARE PENDING AND WILL BE REPORTED SEPARATELY AN ADDENDUM Comment: Immunohistochemical stains performed and interpreted at [place], [place] ([id number]) and interpreted at [facility] show focal loss of nuclear expression with P57, and high proliferative activity with ki-67. 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 Suggest clinical and chromosomal studies correlation. Prior materials are noted. Electronically Signed Amanda Santiago M.D. Gross Description Received fresh labeled "products of conception," is a 15.0 x 12.0 x 1.0 cm aggregate of dillon-red soft tissue fragments. There are fluid-filled saccular clusters of villi identified, consistent with a molar . No somatic tissue is identified. A benefits representative portion is placed in RPMI solution and sent for genetic studies. An additional benefits representative portion is submitted in 2 cassettes. DL/05/11/2018 saudi/05/11/2018
== END 2018-05-11 14:40 | disposition home or self-care (01) ==
LOC: JASU-SURG 05:01
PROVIDERS: ATTEND Obstetrics & Gynecology
PROC: 10D17ZZ Extraction of Products of Conception, Retained, Via Natural or Artificial Opening (ICD-10-PCS; principal; 2018-05-11 11:30)
DX: O02.1 Missed abortion (principal)
CPT/HCPCS: 86850; 86900; 86901; 88305-TC; 94760

== ENCOUNTER 2020-03-23 06:30 | Inpatient (IN) | payer OTHER ==
[2020-03-23] MEDS ORDERED: morphine SULFATE/PF 0.5 MG/ML (2cc Syringe - QUVA) ONE (07:56)
[2020-03-23] MEDS ORDERED: PHENYLEPHRINE HCL 10 MG/1 ML SINGLE DOSE VIAL ONE (07:56)
[2020-03-23] MEDS ORDERED: ELECTROLYTE-148 SOLN 500 ML IV ONE (07:59)
[2020-03-23] MEDS ORDERED: ACETAMINOPHEN 325 MG TABLET (FP) PO PRN (07:59)
[2020-03-23] MEDS ORDERED: ONDANSETRON 4 MG/2 ML VIAL IVPUSH PRN (07:59)
[2020-03-23] MEDS ORDERED: CITRIC ACID/SODIUM CITRATE 30 ML UNIT-DOSE CUP PO ONE (07:59)
[2020-03-23] MEDS ORDERED: ELECTROLYTE-148 SOLN 1,000 ML IV SCH (08:00)
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
[2020-03-23] MEDS ORDERED: MIDAZOLAM HCL 2 MG/2 ML SINGLE DOSE VIAL ONE (08:37)
[2020-03-23 08:53] VITALS: BMI 32.3
[2020-03-23] MEDS ORDERED: OXYTOCIN 10 UNITS/ML VIAL ONE ×2 (09:01)
[2020-03-23] MEDS ORDERED: ceFAZolin SODIUM 1 GM VIAL ONE ×2 (09:01)
[2020-03-23] MEDS ORDERED: METHYLERGONOVINE MALEATE 0.2 MG/1 ML AMP IM PRN (09:22)
[2020-03-23] MEDS: OXYTOCIN 20 UNITS in 0.9% NS 20 UNIT/1,000 ML INFUS.BAG IV SCH (09:30)
[2020-03-23] MEDS ORDERED: OXYTOCIN 20 UNITS in 0.9% NS 20 UNIT/1,000 ML INFUS.BAG IV ONE (09:33)
--- NOTE | 2020-03-23 09:33 | OP ---
Operative Note - Note: Operative Date: 03/23/20 Pre-Operative Diagnosis: 39 weeks previous c/sx2 , voluntory sterlization Operation: Repeat c/section & BTL Findings: 8.31 AM baby turned externally from Rt Oblique position to vertex , delievered as ROP , baby Girl, 9/9 , wt 7'15" AF clear both tubes & ovaries normal Bilateral total salpingectomy done with Ligasure incidentally large placenta & long cord Dr Keyes present in OR Surgeon: Seema Holloway Blanket Cutting Machine Operator: Edgar Keys Anesthesiologist/PRODUCT SAFETY COORDINATOR: Panfilo Puente Anesthesia: Spinal Specimens Removed: cord segment for cord gas. cord blood. placenta Estimated Blood Loss (mls): 800 Drains, Volume Out (mls): 200 (marie outut 200 ml. js color ) Fluid Volume Replaced (mls): 2,000 Operative Report Dictated: Yes
--- NOTE | 2020-03-23 09:35 | PN ---
Delivery - Delivery Section: Repeat, Low Flap Transverse (indication : previous c/s x2 & vountory sterlization) Type of Anesthesia: Spinal Episiotomy/Laceration: None EBL (cc): 800 (marie output 200ml js color ) Delivery, Single - Stages of Labor Date of Delivery: 03/23/20 Time of Delivery: 08:31 Time Placenta Delivered: 08:32 Placenta: Yes: Manual Removal, Uterine Exploration - Condition of Infant Project Officer/Hydraulic Corrugating Machine Operator Present: Yes Name: Brittany Keyes Infant Gender: Female Weight: 7 lb 15 oz Position: Right, OP Total Hours ROM (Hrs/Mins): 0hrs 2min - 1 Minute Total Score: 9 5 Minutes Total Score: 9 - Reading Feeding Plan Initial Plan: Exclusive throughout hospitalization Remarks - Remarks Remarks: 34 yrs , 39 wks previous c/s x2 , requests for repeat c/s & vol ster l PNC at , [facility] GBS neg Intraop course uneventful . 2gm iv Ancef intraop given
[2020-03-23 10:00] LABS: VENOUS BASE EXCESS -3.6 mmol/L (-2-2); VENOUS O2 SATURATION 47.9 % (70-80); VENOUS PCO2 44.1 mmHg (38-52); VENOUS PH 7.325 (7.310-7.410)
[2020-03-23] MEDS ORDERED: IBUPROFEN 800 MG/8 ML IJ IVPB ONE (10:02)
[2020-03-23 10:06] LABS: CORD BASE EXCESS -4.3 mmol/L (0-2); CORD HCO3 23.8 mmHg (20-29); CORD PCO2 55.2 mmHg (30-78); CORD pH 7.252 (7.14-7.44)
[2020-03-23] MEDS: IBUPROFEN 800 MG/8 ML IJ IVPB PRN ×2 (10:06→21:00)
--- NOTE | 2020-03-23 12:18 | OP ---
DATE OF OPERATION: 03/23/2020 PREOPERATIVE DIAGNOSIS: A 39-week , previous section x2, and request for voluntary sterilization. OPERATION: Repeat low flap transverse section and bilateral total salpingectomy. SURGEON: Seema Holloway MD DIP TANKER SURGEON: JUANITA Amaro ANESTHESIA: Spinal. ANESTHESIOLOGIST: Panfilo Puente MD CAR REPAIRER APPRENTICE: Brittany Keyes MD FINDINGS: This is a 34-year-old 6, para 2-0-3-2 of 39 weeks not in labor. Has history of a previous section x2. She is obese and also requires a voluntary sterilization. Presentation was oblique. The head was the right side in the right lower quadrant. DESCRIPTION OF PROCEDURE: Patient was taken to the operating room table. Abdomen was shaved, prepped. Allan catheter was placed. A spinal anesthesia was given. SCD stockings were placed . Patient was in supine position. Abdomen painted and draped in usual manner. Pfannenstiel incision made, and skin, subcutaneous tissue, anterior rectus sheath incised transversely. Bleeding points were clamped and cauterized. Rectus muscle was from the rectus sheath. Parietal peritoneum was opened vertically. Low flap bladder peritoneum was identified, and it was incised transversely. The lower uterine segment was isolated and was incised transversely. Amniotic fluid was clear. Prior to the incision, the external rotation of the head was done. It was brought into position, and the baby was delivered from ROP position at 8:31 AM. Baby's was 9/9, and baby was handed over to the motion picture narrator. Baby's weight was 7 pounds 15 ounces. Cord blood was clamped, cut, and cord segment was sent for cord blood gas. Cord blood was collected. Placenta was removed completely with the membranes and incidentally long cord and very large placenta was noted. The uterine cavity was cleaned completely, and uterus was brought out of the incision. Both the tubes and ovaries were normal. Uterine incision was closed with 2 layers. First layer was a continuous locking with a Biosyn 0 suture, and 2nd layer was a continuous intermittent locking with a Biosyn single suture. Interrupted sutures were taken in the bladder peritoneum. Hemostasis was verified. Then LigaSure was used, and total salpingectomy done 1st on the right side then on the left side serially just in the mesosalpinx just below the tube with a LigaSure. Mesosalpinx below the tube was clamped, cauterized, and cut until the cornual end was reached, and both the tubes were dissected and sent for pathologic examination. Hemostasis was verified. Uterus was placed back into the peritoneal cavity. Irrigation was done. Once again, the hemostasis was verified on both the tubes and the incision then the sponge, instrument, needle count was correct and then the closure of the abdomen was done. Parietal peritoneum was closed with a Vicryl 0 suture. Muscles were approximated together with a Vicryl 0 interrupted suture and subcutaneous tissue then anterior rectus sheath underneath. Hemostasis was checked. Anterior rectus sheath was closed with 0 Vicryl 0 continuous suture. Hemostasis checked again. Skin was mobilized from the underneath scar, and subcutaneous tissue was approximated with interrupted Biosyn surgical suture, and the skin was approximated with iain. Patient tolerated procedure well. Pressure dressing was given. Blood clots were removed from the vagina, and she was transferred to the recovery room in stable condition. The estimated blood loss was 800 mL, and urine output was 200 mL js color. She received 2 g of IV Ancef prior to the incision. Rochelle [id number] MTDJoy
[2020-03-23] MEDS: ACETAMINOPHEN 325 MG TABLET (FP) PO PRN (15:34)
[2020-03-23] MEDS: CEFAZOLIN 1 GM/D5W 1 GM/50 ML BAG IVPB SCH (16:09)
[2020-03-24] MEDS: CEFAZOLIN 1 GM/D5W 1 GM/50 ML BAG IVPB SCH ×2 (01:01→07:52)
[2020-03-24] MEDS: SIMETHICONE 80 MG TAB.CHEW (FP) PO PRN ×2 (03:35→20:45)
[2020-03-24] MEDS: ACETAMINOPHEN 325 MG TABLET (FP) PO PRN ×2 (03:36→20:43)
[2020-03-24] MEDS: IBUPROFEN 600 MG TABLET (FP) PO PRN ×4 (03:36→20:44)
--- NOTE | 2020-03-24 06:38 | PN ---
Progress Note (short form) - Note Progress Note: pod 1 s/p repeat c/s , doing well, no c/o Last Vital Signs Temp Pulse Resp BP Pulse Ox 97.8 F 60 18 111/68 100 03/24/20 05:58 03/24/20 05:58 03/24/20 06:00 03/24/20 05:58 03/23/20 14:00 abdomen soft, no distension, no cva , incision dry, clean uterus firm no calf tenderness plan ambulate cbc advance diet
[2020-03-24] MEDS ORDERED: BISACODYL 10 MG SUPP.RECT RC PRN (09:22)
[2020-03-24 09:38] LABS: BASO % 0.3 % (0-2.0); EOS % 0.3 % (0-4.5); HEMOGLOBIN 10.5 GM/dL (10.7-15.3); LYMPH % 28.3 % (8-40); MCH 26.5 pg (25.7-33.7); MEAN CELL VOLUME 80.4 fl (80-96); MEAN PLT VOLUME 9.5 fl (7.5-11.1); MONO % 4.9 % (3.8-10.2); NEUT % 66.2 % (42.8-82.8); PLATELET COUNT 133 K/MM3 (134-434); RBC 3.97 M/mm3 (3.60-5.2); RDW 14.3 % (11.6-15.6); WHITE BLOOD COUNT 5.4 K/mm3 (4.0-10.0)
[2020-03-24] MEDS: oxyCODONE HCL 5 MG TABLET PO PRN ×2 (10:11→16:01)
[2020-03-24] MEDS: ENOXAPARIN NA (PORCINE) 40 MG/0.4 ML DISP.SYRIN SQ SCH (10:13)
[2020-03-24] MEDS: PRENATAL VITAMINS W/ FOLIC ACID TABLET (FP) PO SCH (10:13)
--- NOTE | 2020-03-24 11:06 | PN ---
Progress Note (short form) - Note Progress Note: Post op day#1.S/P C Section under spinal anesthesia with duramorph une ventful.Patient stable and c/o little pain for which she is on medication.No any anesthesia related problem.Patient DC from the anesthesia care.
[2020-03-24] MEDS: FERROUS SO4 325 MG TABLET (FP) PO SCH (18:50)
[2020-03-24] MEDS: SENNOSIDES/DOCUSATE COMBO (SENNA PLUS) TABLET (UD) PO PRN (20:45)
[2020-03-25] MEDS: oxyCODONE HCL 5 MG TABLET PO PRN ×4 (01:36→23:36)
[2020-03-25] MEDS: SIMETHICONE 80 MG TAB.CHEW (FP) PO PRN ×4 (01:36→23:36)
[2020-03-25] MEDS: IBUPROFEN 600 MG TABLET (FP) PO PRN ×4 (01:37→23:37)
[2020-03-25] MEDS: ACETAMINOPHEN 325 MG TABLET (FP) PO PRN (01:37)
[2020-03-25] MEDS: ENOXAPARIN NA (PORCINE) 40 MG/0.4 ML DISP.SYRIN SQ SCH (09:09)
[2020-03-25] MEDS: PRENATAL VITAMINS W/ FOLIC ACID TABLET (FP) PO SCH (09:09)
[2020-03-25] MEDS: FERROUS SO4 325 MG TABLET (FP) PO SCH ×2 (09:09→18:18)
--- NOTE | 2020-03-25 12:17 | PN ---
Post Progress Note - Subjective Subjective: 34 yo Para 3, status post repeat , seen and evaluated. Doing well Post Day: 2 Type of Delivery: Repeat C/S Vital Signs: Vital Signs Temperature 98.7 F 03/25/20 09:00 Pulse Rate 79 03/25/20 09:00 Respiratory Rate 18 03/25/20 09:00 Blood Pressure 133/89 03/25/20 09:00 O2 Sat by Pulse Oximetry (%) 100 03/23/20 14:00 Breast Exam: Yes: Soft Uterus: Yes: Fundus below umbilicus Incision: Yes: Dressing dry and intact Abdomen/GI: Yes: Abdomen soft, Tolerating PO Lochia: Yes: Rubra Lochia, amount: Small Extremities: Yes: Calves non-tender Activity: Ambulating - Labs Labs: CBC WBC 5.4 K/mm3 (4.0-10.0) 03/24/20 08:05 RBC 3.97 M/mm3 (3.60-5.2) 03/24/20 08:05 Hgb 10.5 GM/dL (10.7-15.3) L 03/24/20 08:05 Hct 32.0 % (32.4-45.2) L 03/24/20 08:05 MCV 80.4 fl (80-96) 03/24/20 08:05 MCH 26.5 pg (25.7-33.7) 03/24/20 08:05 MCHC 33.0 g/dl (32.0-36.0) 03/24/20 08:05 RDW 14.3 % (11.6-15.6) 03/24/20 08:05 Plt Count 133 K/MM3 (134-434) L 03/24/20 08:05 MPV 9.5 fl (7.5-11.1) 03/24/20 08:05 Absolute Neuts (auto) 3.6 K/mm3 (1.5-8.0) 03/24/20 08:05 Neutrophils % 66.2 % (42.8-82.8) 03/24/20 08:05 Lymphocytes % 28.3 % (8-40) D 03/24/20 08:05 Monocytes % 4.9 % (3.8-10.2) 03/24/20 08:05 Eosinophils % 0.3 % (0-4.5) 03/24/20 08:05 Basophils % 0.3 % (0-2.0) 03/24/20 08:05 Nucleated RBC % 0 % (0-0) 03/24/20 08:05 Assessment/Plan Status post repeat Ambulation Analgesia as needed Continue routine care
[2020-03-25] MEDS: SENNOSIDES/DOCUSATE COMBO (SENNA PLUS) TABLET (UD) PO PRN (23:36)
[2020-03-26] MEDS: IBUPROFEN 600 MG TABLET (FP) PO PRN ×2 (08:11→15:13)
[2020-03-26] MEDS: SIMETHICONE 80 MG TAB.CHEW (FP) PO PRN ×2 (08:11→15:13)
[2020-03-26] MEDS: oxyCODONE HCL 5 MG TABLET PO PRN (08:12)
[2020-03-26 08:40] LABS: BASO % 0.4 % (0-2.0); EOS % 0.9 % (0-4.5); HEMATOCRIT 31.3 % (32.4-45.2); HEMOGLOBIN 10.6 GM/dL (10.7-15.3); LYMPH % 26.6 % (8-40); MCH 27.9 pg (25.7-33.7); MEAN PLT VOLUME 9.1 fl (7.5-11.1); MONO % 5.5 % (3.8-10.2); NEUT % 66.6 % (42.8-82.8); PLATELET COUNT 154 K/MM3 (134-434); RBC 3.82 M/mm3 (3.60-5.2); RDW 15.1 % (11.6-15.6)
[2020-03-26] MEDS: ENOXAPARIN NA (PORCINE) 40 MG/0.4 ML DISP.SYRIN SQ SCH (10:09)
[2020-03-26] MEDS: PRENATAL VITAMINS W/ FOLIC ACID TABLET (FP) PO SCH (10:09)
[2020-03-26] MEDS: FERROUS SO4 325 MG TABLET (FP) PO SCH ×2 (10:09→17:49)
--- NOTE | 2020-03-26 11:49 | PN ---
Post Progress Note - Subjective Subjective: 34 yo Para 3, status post repeat , seen and evaluated, she c/o incision pain. Post Day: 3 Type of Delivery: Repeat C/S Vital Signs: Vital Signs Temperature 97.9 F 03/26/20 08:30 Pulse Rate 73 03/26/20 08:30 Respiratory Rate 18 03/26/20 08:30 Blood Pressure 137/78 03/26/20 08:30 O2 Sat by Pulse Oximetry (%) 100 03/23/20 14:00 Breast Exam: Yes: Soft Uterus: Yes: Fundus below umbilicus Incision: Yes: [place] intact Abdomen/GI: Yes: Tolerating PO. No: Abdominal Distention Lochia: Yes: Rubra Lochia, amount: Small Extremities: Yes: Calves non-tender Activity: Ambulating - Labs Labs: CBC WBC 7.0 K/mm3 (4.0-10.0) 03/26/20 07:50 RBC 3.82 M/mm3 (3.60-5.2) 03/26/20 07:50 Hgb 10.6 GM/dL (10.7-15.3) L 03/26/20 07:50 Hct 31.3 % (32.4-45.2) L 03/26/20 07:50 MCV 82.0 fl (80-96) 03/26/20 07:50 MCH 27.9 pg (25.7-33.7) 03/26/20 07:50 MCHC 34.0 g/dl (32.0-36.0) 03/26/20 07:50 RDW 15.1 % (11.6-15.6) 03/26/20 07:50 Plt Count 154 K/MM3 (134-434) 03/26/20 07:50 MPV 9.1 fl (7.5-11.1) 03/26/20 07:50 Absolute Neuts (auto) 4.6 K/mm3 (1.5-8.0) 03/26/20 07:50 Neutrophils % 66.6 % (42.8-82.8) 03/26/20 07:50 Lymphocytes % 26.6 % (8-40) 03/26/20 07:50 Monocytes % 5.5 % (3.8-10.2) 03/26/20 07:50 Eosinophils % 0.9 % (0-4.5) D 03/26/20 07:50 Basophils % 0.4 % (0-2.0) 03/26/20 07:50 Nucleated RBC % 0 % (0-0) 03/26/20 07:50 Assessment/Plan Status post repeat Ambulation Analgesia as needed Continue routine care
[2020-03-26] MEDS: ACETAMINOPHEN 325 MG TABLET (FP) PO PRN (15:12)
[2020-03-27] MEDS: FERROUS SO4 325 MG TABLET (FP) PO SCH ×2 (08:42→18:07)
[2020-03-27] MEDS: IBUPROFEN 600 MG TABLET (FP) PO PRN ×2 (08:42→16:09)
[2020-03-27] MEDS: SIMETHICONE 80 MG TAB.CHEW (FP) PO PRN ×2 (08:42→16:09)
[2020-03-27] MEDS: ACETAMINOPHEN 325 MG TABLET (FP) PO PRN ×2 (08:43→16:09)
[2020-03-27] MEDS: ENOXAPARIN NA (PORCINE) 40 MG/0.4 ML DISP.SYRIN SQ SCH (10:52)
[2020-03-27] MEDS: PRENATAL VITAMINS W/ FOLIC ACID TABLET (FP) PO SCH (10:52)
[2020-03-27 11:40] VITALS: BP 133/79; PULSE 81; TEMP 98.5
[2020-03-27] MEDS: OXYTOCIN 20 UNITS in 0.9% NS 20 UNIT/1,000 ML INFUS.BAG IV SCH (14:42)
--- NOTE | 2020-03-28 10:54 | PATH ---
Surgical Pathology Report Patient Name: AMANDA GEORGES [facility]. Rec. 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 Specimen(s) Received A: PLACENTA B: RIGHT FALLOPIAN TUBE C: LEFT FALLOPIAN TUBE Clinical History Final Diagnosis A. PLACENTA, SECTION: 1070 G THIRD TRIMESTER PLACENTA WITH TRIVASCULAR UMBILICAL CORD AND UNREMARKABLE PLACENTAL MEMBRANES. B. FALLOPIAN TUBE, RIGHT, SALPINGECTOMY: UNREMARKABLE FALLOPIAN TUBE (INCLUDING FIMBRIATED END AND FULL LUMINAL PORTION). C. FALLOPIAN TUBE, LEFT, SALPINGECTOMY: FALLOPIAN TUBE WITH PARATUBAL CYST (INCLUDING FIMBRIATED END AND FULL LUMINAL PORTION). Electronically Signed Amanda Santiago M.D. Gross Description A. The specimen is received fresh labeled placenta and is a 1070 gram, 20.0 x 17.0 x 5.0 cm. placenta with attached membranes and umbilical cord. The attached membranes are dillon, translucent with focal opacities and insert marginally. The umbilical cord measures 75 cm. in length and averages 1 cm. in diameter. The cord inserts eccentrically, 5 cm. to the nearest margin. No true knots or strictures are identified. Cut surface of the umbilical cord reveals 3 vessels. The surface is vance blue with moderate fibrin deposition and appropriate caliber vessels. The maternal surface is red-brown with focal defects. Sectioning reveals red-brown, spongy parenchyma. No lesions are identified. Fruit And Vegetable Packer sections are submitted in three cassettes as follows: 1- membrane rolls and umbilical cord; 2-3- full thickness sections of placenta. B. Received in formalin labeled "right fallopian tube," is a 6 cm in length fimbriated fallopian tube. The outer surface is dillon-pink and smooth. Sectioning reveals an unremarkable lumen. Fruit And Vegetable Packer sections are submitted in 2 cassettes as follows: 1-fimbria; 2-cross sections of fallopian tube. C. Received in formalin labeled "left fallopian tube," is a 6 cm in length fimbriated fallopian tube. The outer surface is dillon-pink and smooth. Sectioning reveals an unremarkable lumen. Fruit And Vegetable Packer sections are submitted in 2 cassettes as follows: 1-fimbria; 2-cross sections of fallopian tube. 03/24/2020 [facility]03/24/2020
--- NOTE | 2020-03-29 15:14 | DS ---
Physical Exam-GASTROENTEROLOGY PHYSICIAN Vital Signs: Vital Signs Temperature 98.5 F 03/27/20 10:00 Pulse Rate 81 03/27/20 10:00 Respiratory Rate 18 03/27/20 10:00 Blood Pressure 133/79 03/27/20 10:00 O2 Sat by Pulse Oximetry (%) 100 03/23/20 14:00 Constitutional: Yes: Well Nourished Eyes: Yes: Conjunctiva Clear HENT: Yes: Atraumatic Neck: Yes: Supple Cardiovascular: Yes: Regular Rate and Rhythm Respiratory: Yes: Regular Gastrointestinal: Yes: Normal Bowel Sounds Uterus: Yes: Firm Wound/Incision: Yes: Well Approximated, Jasmin Intact Neurological: Yes: Alert, Oriented ...Motor Strength: WNL Psychiatric: Yes: Alert, Oriented Labs: CBC, BMP 03/26/20 07:50 Delivery - Delivery Section: Repeat, Low Flap Transverse (indication : previous c/s x2 & vountory sterlization) Type of Anesthesia: Spinal Episiotomy/Laceration: None EBL (cc): 800 (marie output 200ml js color ) Delivery, Single - Stages of Labor Date of Delivery: 03/23/20 Time of Delivery: 08:31 Time Placenta Delivered: 08:32 Placenta: Yes: Manual Removal, Uterine Exploration - Condition of [place] Floorperson/Apartment Rental Agent Present: Yes Name: Brittany Keyes Infant Gender: Female Weight: 7 lb 15 oz Position: Right, OP Total Hours ROM (Hrs/Mins): 0hrs 2min - 1 Minute Total Score: 9 5 Minutes Total Score: 9 - [place] Feeding Plan Initial Plan: Exclusive throughout hospitalization Discharge Summary Problems reviewed: Yes Reason For Visit: SCHEDULED C/SECTION Procedures: Principal: delivery Hospital Course: Routine post op care Health Concerns: None Plan of Treatment: Analgesia as needed No driving, no lifting x 4 weeks F/U in clinic in 1 week Goals: Resume regular activities in 6 weeks Condition: Stable - Instructions Diet, Activity, Other Instructions: Post Instructions DIET: Continue good diet high in protein, calcium, and iron rich foods. Drink at least eight (8) glasses of water daily in addition to other fluids. ___ Regular diet MEDICATIONS: Continue vitamins and iron as previously directed. Motrin and Tylenol may be taken for minor discomfort. ACTIVITY: Mild to moderate exercise may be started in two (2) weeks. Take frequent rest periods. Resume normal activity after six (6) week check up. WOUND CARE OF OPERATIVE SITE: Continue use of perineal bottle until vaginal discharge stops. Keep area clean. Shower daily. Keep abdominal wound dry. Report any drainage or redness to phys ician. Tub baths, tampons and douches are not permitted for [address] Breast feeding & or _ Bottle feeding BREAST CARE: (For those that are not ): If engorgement occurs: Wear tight fitting bra. Take Tylenol or Motrin for pain. Apply cold packs (ice in bags to each breast ) FAMILY PLANNING: There are many control alternatives to pursue and they should be discussed at your first office visit. You may resume sexual activity after your six (6) week check up. (Remember, breast feeding is not a contraceptive) NEXT PHYSICIAN APPOINTMENT: Be certain to call for a one (1) week appointment, unless otherwise directed. RTC Friday for jasmin removal . Call [phone] for appt Call Clinic or got to Emergency Dept if you have any of the following: Heavy vaginal bleeding Painful urination Leg pain Unusual odor noted to vaginal bleeding High fever Red streaking noted on breast Referrals: Seema Holloway MD [Staff Physician] - Disposition: HOME - Home Medications Comprehensive Discharge Medication List: Ambulatory Orders Vit/Iron Fumarate/FA [ Plus Tablet] 1 each PO DAILY #0 tablet 07/13/13 Acetaminophen [Tylenol .Regular Strength -] 500 mg PO Q4H PRN #30 tablet 03/23/20 Ferrous Sulfate [Feosol] 325 mg PO DAILY #30 tab 03/23/20 Ibuprofen [Motrin -] 600 mg PO Q4H PRN #30 tablet 03/23/20 Vitamins (Sjr) - 1 tab PO DAILY #30 tablet 03/23/20 oxyCODONE HCL [Roxicodone -] 5 mg PO Q4H PRN #20 tablet MDD 30 mg 03/23/20
== END 2020-03-27 17:45 | disposition home or self-care (01) | DRG 540 ==
LOC: JLDR 06:30 → J3W 15:10
PROVIDERS: ADMIT Obstetrics & Gynecology; ATTEND Obstetrics & Gynecology
PROC: 10D00Z1 Extraction of Products of Conception, Low, Open Approach (ICD-10-PCS; principal; 2020-03-23)
PROC: 0UT70ZZ Resection of Bilateral Fallopian Tubes, Open Approach (ICD-10-PCS; 2020-03-23)
DX: O82 Encounter for cesarean delivery without indication (principal); Z30.2 Encounter for sterilization; Z3A.39 39 weeks gestation of pregnancy; Z37.0 Single live birth; O99.02 Anemia complicating childbirth; D64.9 Anemia, unspecified; Z98.891 History of uterine scar from previous surgery; E78.5 Hyperlipidemia, unspecified; Z87.19 Personal history of other diseases of the digestive system; Z86.59 Personal history of other mental and behavioral disorders
CPT/HCPCS: 36415; 36600; 82803; 85025; 88302-TC; 88307-TC